=== PATIENT | male | born 1950 | race Caucasian/White ===

== ENCOUNTER 2024-01-01 05:37 | Emergency (ER) | payer OTHER, SELFPAY ==
[2024-01-01 05:46] VITALS: BP 158/88
[2024-01-01] MEDS: ADACEL 0.5 ML IM (06:16)
--- NOTE | 2024-01-01 06:37 | ED.SKININJ ---
HPI-Injury
General
Chief Complaint: Skin Surface Trauma
Source: patient
Time Seen by Provider: 01/01/24 06:33
Travel History
Have you had any contact with someone who has COVID-19?: No
Do you have any symptoms of coronavirus? Fever > 100 degrees, chills, cough, shortness of breath, sore throat, loss of taste or smell, muscle aches, or headache?: No
History of Present Illness-Injury
Initial Injury comments:
73-year-old male presents with a laceration to his right index finger. Patient states he was changing a light bulb when it broke causing the laceration. Patient also has a very tiny abrasion to his right thumb. Patient does not take any
prescription medications. No other injuries.
Past History
Past History
ED Past Medical History: None
Social History
Tobacco: Non-smoker
Alcohol: Occasional
Drug: None
Personal:
Living: with family
Phy Exam
Physical Exam
Physical Exam:
General: Awake, Alert, Oriented X3. No acute distress.
Vitals: unremarkable
Head: Atraumatic
Eyes: Pupils equal, EOMI
Throat: Airway intact, no exudates
Neuro: Nonfocal
Skin: Warm, dry, no rash
Extremities: pulses equal b/l, no edema. Right index finger has a proxy 1 cm laceration noted. Right thumb distally has a small superficial abrasion.
Course
Orders/Labs/Results
Orders:
Orders
01/01/24 05:49
Tetanus/Diphth/Acelpertussis [Adacel] 0.5 ml IM .ONCE ONE
01/01/24 06:36
CR Hand - Right Min 3 Views Urgent
Reason For Exam: lac on broken light bulb
Vital Signs
Initial and Last Documented VS:
Initial Vital Signs
Temp Pulse Resp BP Pulse Ox
97.7 F 74 18 158/88 96
01/01/24 05:46 01/01/24 05:46 01/01/24 05:46 01/01/24 05:46 01/01/24 05:46
Last Documented Vital Signs
Temp Pulse Resp BP Pulse Ox
97.7 F 74 18 158/88 96
01/01/24 05:46 01/01/24 05:46 01/01/24 05:46 01/01/24 05:46 01/01/24 05:46
MDM/Problems Addressed
Differential Diagnosis Includes:
Retained foreign body, abrasion, laceration
MDM/Problems Addressed:
No foreign body noted on x-ray. No foreign body noted on physical exam. I placed her strips over the laceration was index finger. Tetanus updated. Patient stable for discharge home with routine wound care instructions
*Pulse Oximetry
Patient hypoxic: no
*Critical Care Note
Total Time (30-74mins, 75-104mins- exclusive of procedures): Not Applicable
ED Attending Note
-
Portions of this chart may have been created with voice recognition software.� Occasional wrong word or��sound alike� substitutions may have occurred due to the inherent limitations of voice recognition software.
Discharge Plan
Departure
Patient Disposition: Home (Routine Discharge)
Date of Disposition: 01/01/24
Time of Disposition: 07:34
Patient with high blood pressure during this ER visit?: Yes
Condition: Good
Discharge Problem:
Finger laceration
Instructions: Wound Care (DC), BLOOD PRESSURE
Prescriptions:
No Action
No Current Medications
0
Referrals:
UNKNOWN - PT NOT,INTERVIEWE [Unknown Provider] -
Activity Restrictions/Additional Instructions:
Steri-strips will fall off on their own in a few days.
Interventions
Interventions:
*Risk Screen - Suicide Last Done: 01/01/24 06:18
*General Assessment Last Done: 01/01/24 06:18
*Neglect/Abuse Screening Last Done: 01/01/24 06:18
ED- Fall Risk Assessment Last Done: 01/01/24 08:35
*ED COVID-19 Vaccine History Last Done: 01/01/24 06:18
*Nursing Disposition Last Done: 01/01/24 08:35
ED-Skin Assessment Last Done: 01/01/24 06:18
Discharge Date and Time
Discharge Date/Time: 01/01/24 08:36
Print Language: MALAY
== END 2024-01-01 08:36 | disposition home or self-care (01) ==
LOC: EMR 05:37
PROVIDERS: EMERGENCY PHYSICIAN Emergency Medicine
DX: S61.210A Laceration without foreign body of right index finger without damage to nail, initial encounter (principal); W26.8XXA Contact with other sharp object(s), not elsewhere classified, initial encounter; I10 Essential (primary) hypertension; Z23 Encounter for immunization
CPT/HCPCS: 99283; 90471; 73130; 90715

== ENCOUNTER 2024-01-30 05:00 | Emergency (ER) | payer OTHER, SELFPAY ==
[2024-01-30 05:02] VITALS: BP 134/80
[2024-01-30 05:15] VITALS: BMI 21.5
[2024-01-30 05:23] VITALS: BP 137/86
--- NOTE | 2024-01-30 16:33 | ED.GENMED ---
History of Present Illness
General
Chief Complaint: DVT/Possible Blood Clot
Source: patient
Exam Limitations: none
Time Seen by Provider: 01/30/24 06:06
Nursing documentation reviewed up to this point in time: agreed with
History of Present Illness
History of Present Illness:
73-year-old male presents for evaluation of left lower leg pain and swelling. Patient reports that he first noticed it about a week ago and initially attributed to muscle strain�he reports he is quite active but denies any specific injury. He says
that swelling and pain has not improved and so he finally decided to come to the emergency room for assessment. He denies any chest pain or shortness of breath. No history of DVT/PE. Denies any other complaints.
Past History
Past History
ED Past Medical History: None
Social History
Tobacco: Non-smoker
Alcohol: Occasional
Drug: None
Personal:
Living: with family
Review of Systems
Review of Systems
All Other Systems: ROS reviewed and negative except as documented in HPI and ROS
Respiratory: Denies trouble breathing
Cardiac: Denies chest pain
Musculoskeletal: Reports muscle pain and edema
Phy Exam
Physical Exam
Physical Exam:
General: Awake, alert; no acute distress
Head: Normocephalic, atraumatic
Eyes: Conjunctiva normal
Throat: Airway intact, handling secretions
Neck: Trachea midline
Lungs: Breathing comfortably not in distress
Heart: Regular rate
Abd: Soft, non distended, nontender
Neuro: No gross deficits
Skin: No erythema or warmth of the left calf
Extremities: Patient has +1 edema in the left lower leg mostly in the calf; he has some mild upper calf tenderness; no ecchymosis or erythema; he has good strong distal pulses in all extremities�specifically has a strong palpable DP and PT pulse in
the left lower leg
Scores
Heart Failure Risk
Heart Failure Risk Score: Not Applicable
Heart Score for Chest Pain Patients
STEMI patient?: Not applicable
Withdrawal Assessment of Alcohol
Withdrawal Assessment Completed?: Not applicable
Course
Orders/Labs/Results
Orders:
Orders
01/30/24 05:18
US Periph Venous LOWER Ext LT Urgent
Comment:
Reason For Exam: pain, swelling LLE
Vital Signs
Initial and Last Documented VS:
Initial Vital Signs
Temp Pulse Resp BP Pulse Ox
36.4 C 76 24 134/80 98
01/30/24 05:02 01/30/24 05:02 01/30/24 05:02 01/30/24 05:02 01/30/24 05:02
Last Documented Vital Signs
Temp Pulse Resp BP Pulse Ox
36.4 C 77 19 137/86 100
01/30/24 05:02 01/30/24 06:15 01/30/24 06:15 01/30/24 05:23 01/30/24 06:30
MDM/Problems Addressed
Differential Diagnosis Includes:
DVT, Real's cyst, calf hematoma, calf strain
MDM/Problems Addressed:
73-year-old male presents for evaluation of left lower leg pain and swelling over the past week�he admits that he is quite active but denies any specific injury. Vital signs normal. Exam as above. Sent for a left lower extremity ultrasound that
was negative for DVT but showed likely intramuscular hematoma in the left calf. Advised to apply compression sleeve, rest, ice, elevate. Follow-up with primary doctor as an outpatient. He feels comfortable with this plan. All questions answered.
*Radiology
Radiology exam reviewed: radiology read reviewed
*Pulse Oximetry
Patient hypoxic: no
*Critical Care Note
Total Time (30-74mins, 75-104mins- exclusive of procedures): Not Applicable
Data Reviewed
Source: patient
ED Attending Note
-
Portions of this chart may have been created with voice recognition software.� Occasional wrong word or��sound alike� substitutions may have occurred due to the inherent limitations of voice recognition software.
Discharge Plan
Departure
Patient Disposition: Home (Routine Discharge)
Date of Disposition: 01/30/24
Time of Disposition: 06:44
Patient with high blood pressure during this ER visit?: No
Discharge Problem:
Intramuscular hematoma
Instructions: Hematoma
Prescriptions:
No Action
No Current Medications
0
Referrals:
NONE,* [Family Provider] -
Activity Restrictions/Additional Instructions:
You should apply a compression sleeve to your leg during the day. At night you should keep your leg elevated. You can apply a warm compress to encourage blood flow to the area. If you notice your symptoms or not improving in the next 1 to 2 weeks
you should follow-up with your primary doctor for further assessment. If you notice your symptoms are worsening or if you develop any new symptoms that are concerning you should return here for reassessment.
Thank you for visiting the Emergency Department at [facility].
1. Please schedule a follow up appointment as directed. Call first thing tomorrow morning to make an appointment.
2. If indicated, please take your medications as instructed and indicated on discharge paperwork.
3. If any of your symptoms do not improve, or persist, or become more severe within 6-12 hours, please return to the emergency department for further care.
4. Please return to the emergency department if you develop a headache, neck pain/stiffness, fever greater than 100.4F, chest pain, shortness of breath, persistent nausea, vomiting, slurred speech, difficulty walking, numbness/tingling, weakness,
signs of infection or any other symptoms that are worrisome to you.
Please call [phone] if you have any questions.
Interventions
Interventions:
*Risk Screen - Suicide Last Done: 01/30/24 05:02
*General Assessment Last Done: 01/30/24 05:15
*Neglect/Abuse Screening Last Done: 01/30/24 05:02
ED- Fall Risk Assessment Last Done: 01/30/24 05:15
*ED COVID-19 Vaccine History Last Done: 01/30/24 05:15
*Nursing Disposition Last Done: 01/30/24 06:54
ED- Cardiac Assessment Last Done: 01/30/24 05:15
ED- Pulmonary Assessment Last Done: 01/30/24 05:15
ED-Peripheral Vascular Assessment Last Done: 01/30/24 05:15
ED-Skin Assessment Last Done: 01/30/24 05:15
Discharge Date and Time
Discharge Date/Time: 01/30/24 06:55
Print Language: WALLISIAN
== END 2024-01-30 06:55 | disposition home or self-care (01) ==
LOC: EMR 05:00
PROVIDERS: EMERGENCY PHYSICIAN Emergency Medicine
DX: S80.12XA Contusion of left lower leg, initial encounter (principal); X58.XXXA Exposure to other specified factors, initial encounter; R22.42 Localized swelling, mass and lump, left lower limb
CPT/HCPCS: 99284; 93971